=== PATIENT | male | born 1980 | race Caucasian/White ===

== ENCOUNTER 2024-10-23 11:33 | Emergency (ER) | payer OTHER, SELFPAY ==
[2024-10-23 11:48] VITALS: BP 153/78
--- NOTE | 2024-10-23 11:54 | ED.GENMED ---
ED Provider Triage
<Froylan Evans PA-C - Last Filed: 10/23/24 11:55>
-
Patient seen by provider in Triage?: Seen in Triage
Attestation: A medical screening examination has been initiated by a qualified medical provider. Based on the assessment performed at this time, it has been determined that an emergent medical condition may exist and the patient has been informed
that further medical evaluation and possible additional diagnostic testing may be needed.
HPI: 43-year-old male presenting to the ER for evaluation of sudden onset abdominal pain within the right upper quadrant since 1 AM accompanied with multiple episodes of nausea and vomiting. Pain is somewhat colicky. Vomited just prior to triage.
Pain exclusively within the right upper quadrant and nonradiating. No fevers. Last night had fried buffalo chicken squares which is not typical for him. Appears uncomfortable. Toradol and Zofran ordered. Ultrasound of the abdomen and labs
ordered.
GENERAL: Alert , in no apparent distress
EYE: No visual abnormalities.
NECK: Trachea midline
ENT: No visible abnormalities.
LUNGS: No acute respiratory distress
NEUROLOGICAL: Alert and oriented
SKIN: Skin intact. No visible changes.
MUSCULOSKELETAL: Moving extremities normally
PSYCH: Normal and appropriate interaction.
This is a medical evaluation conducted in person to initiate diagnostic evaluation and provide initial therapeutics. Please see further documentation by the treating clinician.
History of Present Illness
<Froylan Evans PA-C - Last Filed: 10/23/24 11:55>
General
Chief Complaint: Abdominal Pain
Time Seen by Provider: 10/23/24 13:26
<Chanda Boothe PA-C - Last Filed: 10/24/24 01:12>
General
Source: patient
Exam Limitations: none
Nursing documentation reviewed up to this point in time: agreed with
History of Present Illness
History of Present Illness:
Patient is a 43-year-old male with history ulcerative colitis presenting to the emergency department for evaluation of acute onset upper abdominal pain. Patient states pain woke him up from his sleep at 1 AM and describes it as a crampy
intermittent pain in his upper abdomen. He also endorses episodes of nausea/vomiting. No radiation of pain into chest or back. No history of similar symptoms.
Patient was given a dose of Zofran and Toradol in triage and is essentially asymptomatic by my evaluation. He states pain came from an 8/10 down to a 1/10. Patient denies any associated chest pain, shortness of breath, urinary symptoms,
constipation/diarrhea. Patient denies any fevers or chills
Patient does note that he had pizza, bread sticks, and buffalo chicken puff pastries around 10 PM last night prior to onset of symptoms.
Patient does state that his father had an emergent cholecystectomy when he was in his 50s.
Review of Systems
<Chanda Boothe PA-C - Last Filed: 10/24/24 01:12>
Review of Systems
Allergies reviewed?: Yes
All Other Systems: ROS reviewed and negative except as documented in HPI and ROS
Phy Exam
<Chanda Boothe PA-C - Last Filed: 10/24/24 01:12>
Physical Exam
Physical Exam:
Vitals: Hypertensive, otherwise stable vital signs. Afebrile
General: Patient is well appearing, no acute distress. Nontoxic appearing
Skin: Warm and dry, no rashes or lesions
Head: Normocephalic, atraumatic
Eyes: Sclera nonicteric. EOMs intact. No nystagmus.
Throat: Protecting airway
Neck: Normal ROM, no cervical spine tenderness, no meningismus
Cardiac: Regular rate and rhythm, no murmurs.
Pulm: Normal respiratory effort, no wheezes, rales, rhonchi heard on exam.
Abdomen: Abdomen soft. Very mild right upper quadrant tenderness without rebound tenderness or guarding. Negative Martinez sign. No rash or bruising.
Extremities: No evidence of cyanosis or edema
Neuro: AAOx3. Grossly intact.
Psychiatric: Normal affect.
Course
<Froylan Evans PA-C - Last Filed: 10/23/24 11:55>
Orders/Labs/Results
Orders:
Orders
10/23/24 11:52
Ketorolac [Toradol] 60 mg IM NOW STA
Ondansetron Orally Disint [Zofran Odt (Orally Disintegrating)] 4 mg PO NOW STA
US Abdomen Complete/Upper Urgent
Comment:
Reason For Exam: RUQ pain
10/23/24 11:58
Complete Blood Count/With Diff Urgent
Comprehensive Metabolic Panel Urgent
Lipase Urgent
10/23/24 14:07
Electrocardiogram (*1) Urgent
Reason for Study: Abdominal Pain
EKG- Treatment ONCE
Abnormal Lab Results
10/23/24
11:58
WBC 11.3 H 10^3/uL
(4.8-10.8)
Hgb 18.2 H g/dL
(13.0-18.0)
MCH 32.0 H pg
(27.0-31.0)
Absolute Neuts (auto) 9.6 H 10^3/uL
(1.4-6.5)
Absolute Lymphs (auto) 1.1 L 10^3/uL
(1.2-3.4)
Neutrophils % 85.2 H %
(42.2-75.2)
Lymphocytes % 9.4 L %
(20.5-51.1)
Glucose 132 H mg/dl
(70-99)
Calcium 10.5 H mg/dl
(8.4-10.2)
Total Bilirubin 2.0 H mg/dl
(0.2-1.3)
Total Protein 8.7 H g/dl
(6.3-8.2)
Albumin 5.4 H g/dl
(3.5-5.0)
10/23/24 11:58
10/23/24 11:58
Vital Signs
Initial and Last Documented VS:
Initial Vital Signs
Temp Pulse Resp BP Pulse Ox
98.3 F 99 16 153/78 98
10/23/24 11:48 10/23/24 11:48 10/23/24 11:48 10/23/24 11:48 10/23/24 11:48
Last Documented Vital Signs
Temp Pulse Resp BP Pulse Ox
98.3 F 90 17 132/90 97
10/23/24 11:48 10/23/24 14:00 10/23/24 14:00 10/23/24 14:00 10/23/24 14:00
<Chanda Boothe PA-C - Last Filed: 10/24/24 01:12>
Orders/Labs/Results
Orders:
Orders
10/23/24 11:52
Ketorolac [Toradol] 60 mg IM NOW STA
Ondansetron Orally Disint [Zofran Odt (Orally Disintegrating)] 4 mg PO NOW STA
US Abdomen Complete/Upper Urgent
Comment:
Reason For Exam: RUQ pain
10/23/24 11:58
Complete Blood Count/With Diff Urgent
Comprehensive Metabolic Panel Urgent
Lipase Urgent
10/23/24 14:07
Electrocardiogram (*1) Urgent
Reason for Study: Abdominal Pain
EKG- Treatment ONCE
Abnormal Lab Results
10/23/24
11:58
WBC 11.3 H 10^3/uL
(4.8-10.8)
Hgb 18.2 H g/dL
(13.0-18.0)
MCH 32.0 H pg
(27.0-31.0)
Absolute Neuts (auto) 9.6 H 10^3/uL
(1.4-6.5)
Absolute Lymphs (auto) 1.1 L 10^3/uL
(1.2-3.4)
Neutrophils % 85.2 H %
(42.2-75.2)
Lymphocytes % 9.4 L %
(20.5-51.1)
Glucose 132 H mg/dl
(70-99)
Calcium 10.5 H mg/dl
(8.4-10.2)
Total Bilirubin 2.0 H mg/dl
(0.2-1.3)
Total Protein 8.7 H g/dl
(6.3-8.2)
Albumin 5.4 H g/dl
(3.5-5.0)
10/23/24 11:58
10/23/24 11:58
Vital Signs
Initial and Last Documented VS:
Initial Vital Signs
Temp Pulse Resp BP Pulse Ox
98.3 F 99 16 153/78 98
10/23/24 11:48 10/23/24 11:48 10/23/24 11:48 10/23/24 11:48 10/23/24 11:48
Last Documented Vital Signs
Temp Pulse Resp BP Pulse Ox
98.3 F 90 17 132/90 97
10/23/24 11:48 10/23/24 14:00 10/23/24 14:00 10/23/24 14:00 10/23/24 14:00
<Chanda Boothe PA-C - Last Filed: 10/24/24 01:12>
MDM/Problems Addressed
Differential Diagnosis Includes:
Not limited to: biliary colic, acute cholecystitis, choledocholithiasis, pancreatitis, GERD, ACS, etc
MDM/Problems Addressed:
43 year old male presenting with acute onset, colicky right upper quadrant abdominal pain associated with nausea/vomiting. Denies any fever, chest pain, or shortness of breath. Symptoms began after high-fat meal last night. Patient has stable vital
signs on my assessment - he is afebrile. Patient has labs and abdominal US ordered in triage. He was given toradol and zofran with almost complete resolution of symptoms. By my assessment - patient has no complaints. Abdomen is soft and nontender.
Cardio/pulmonary assessment unremarkable.
Labs reviewed. Mild leukocytosis which may be reactive from vomiting. Elevated bilirubin noted although patient states that he has a history of this, possible Gilbert's. Abdominal US without any evidence of gallstones or findings suggesting acute
cholecystitis. History most consistent with likely gallbladder etiology. Given resolution of symptoms and negative US - it is possible that patient passed a stone. Low suspicion for cardiac etiology although a screening EKG was obtained without
acute changes. Offered CT scan vs close monitoring at home. Shared decision making utilized and patient will be discharged home with close follow-up. Recommended low fat/bland diet. Patient made aware of polyp seen on US to have followed up
outpatient. Return precautions discussed.
Chronic conditions affecting care:
N/A
Acute Exacerbation and/or Progression of Chronic Illness:
N/A
<Chanda Boothe PA-C - Last Filed: 10/24/24 01:12>
*Radiology
Radiology exam reviewed: radiology read reviewed
*Pulse Oximetry
Patient hypoxic: no
*EKG
Interpreted by ED Provider?: Yes
EKG Intrepretation Date: 10/23/24
Interpretation: abnormal
Comparison EKG: changes noted
Heart Rate: 63
Rate: normal
Rhythm: sinus
[place]: normal axis
Interval: normal QT interval
QRS Pattern: normal QRS
Ischemia: non-specific ST changes
*Cost Estimating Engineer Interpretation
Rate: Cost Estimating Engineer- N/A
*Critical Care Note
Total Time (30-74mins, 75-104mins- exclusive of procedures): Not Applicable
ED Attending Note
<Froylan Evans PA-C - Last Filed: 10/23/24 11:55>
-
Portions of this chart may have been created with voice recognition software.� Occasional wrong word or��sound alike� substitutions may have occurred due to the inherent limitations of voice recognition software.
Discharge Plan
Departure
Patient Disposition: Home (Routine Discharge)
Date of Disposition: 10/23/24
Time of Disposition: 14:48
Patient with high blood pressure during this ER visit?: Yes
Condition: Good
Covid-19: Not Applicable
Discharge Problem:
Acute upper abdominal pain, Biliary colic symptom
Instructions: Gallstones ED, Abdominal pain in adults - Discharge instructions, Low-fat diet, BLOOD PRESSURE
Referrals:
NONE,* [Family Provider] -
Stephan Bridges MD [Active] - As needed
Activity Restrictions/Additional Instructions:
RETURN TO THE EMERGENCY DEPARTMENT WITH ANY FEVERS, PERSISTENT/WORSENING ABDOMINAL PAIN, INTRACTABLE NAUSEA/VOMITING, CHEST PAIN, SHORTNESS OF BREATH, WORSENING IN CURRENT SYMPTOMS, OR ANY OTHER CONCERNS
-As discussed�your ultrasound in the emergency department showed no evidence of gallstones. It did show a gallbladder polyp which should have followed up with a primary care doctor to ensure is not increasing in size. It is possible you passed a
gallstone prior to ultrasound.
-I would recommend a low-fat diet/bland diet. Stay well-hydrated.
-You should follow-up with your primary care provider for further evaluation/management. I have contacted our manager progressive care to try and get you intact to the primary care physician in the area.
Monitor your symptoms closely and return to the emergency department with any acute worsening/new symptoms or any other concerns
Interventions
Interventions:
*Risk Screen - Suicide Last Done: 10/23/24 11:48
*General Assessment Last Done: 10/23/24 14:00
*Neglect/Abuse Screening Last Done: 10/23/24 11:48
*ED COVID-19 Vaccine History Last Done: 10/23/24 14:00
*Nursing Disposition Last Done: 10/23/24 15:00
IB-Jtlkio-Vftkalmxqr Assessment Last Done: 10/23/24 14:00
Discharge Date and Time
Discharge Date/Time: 10/23/24 15:54
Print Language: SLOVENIAN
[2024-10-23] MEDS: TORADOL 60 MG IM (12:03)
[2024-10-23] MEDS: ZOFRAN ODT (ORALLY DISINTEGRATING) 4 MG PO (12:03)
[2024-10-23 12:07] LABS: % Basophils 0.4 % (0-2); % Eosinophils 0.1 % (0-6); % Immature Granulocytes 0.3 % (0-0.5); % Lymphocytes 9.4 % (20.5-51.1); % Monocytes 4.6 % (1.7-9.3); % Neutrophils 85.2 % (42.2-75.2); Absolute Lymphocytes 1.1 10^3/uL (1.2-3.4); Absolute Monocytes 0.5 10^3/uL (0.1-0.6); Absolute Neutrophils 9.6 10^3/uL (1.4-6.5); Hematocrit 50.4 % (39.0-52.0); Hemoglobin 18.2 g/dL (13.0-18.0); Mean Corp Hgb Conc. 36.1 g/dL (33.0-37.0); Mean Corpuscular Volume 88.7 fL (80.0-94.0); Mean Platelet Volume 8.5 fL (7.4-10.4); Nucleated Red Blood Cells % 0 % (-); Platelet Count 343 10^3/uL (130-400); Red Blood Cell Count 5.68 10^6/uL (4.70-6.10); Red Cell Dist. Width 11.8 % (11.5-14.5); White Blood Cell Count 11.3 10^3/uL (4.8-10.8)
[2024-10-23 12:24] LABS: ALT (SGPT) 22 U/L (0-50); AST (SGOT) 25 U/L (17-59); Albumin 5.4 g/dl (3.5-5.0); Alkaline Phosphatase 89 U/L (38-126); Blood Urea Nitrogen 11 mg/dl (9-20); Calcium 10.5 mg/dl (8.4-10.2); Carbon Dioxide 25 mmol/L (22-30); Chloride 99 mmol/L (98-107); Glucose 132 mg/dl (70-99); Lipase 112 U/L (23-300); Potassium 4.5 mmol/L (3.5-5.1); Sodium 139 mmol/L (135-145); Total Protein 8.7 g/dl (6.3-8.2); eGFR > 60.00
[2024-10-23 14:00] VITALS: BP 132/90
== END 2024-10-23 15:54 | disposition home or self-care (01) ==
LOC: EMR 11:33
PROVIDERS: Physician Assistant Medical; EMERGENCY PHYSICIAN Emergency Medicine
DX: R10.11 Right upper quadrant pain (principal); R11.2 Nausea with vomiting, unspecified; K82.4 Cholesterolosis of gallbladder; K51.90 Ulcerative colitis, unspecified, without complications; Z90.49 Acquired absence of other specified parts of digestive tract
CPT/HCPCS: 99284; 96372; 76700; 80053; 83690; 85025; 93005